=== PATIENT | male | born 1970 | race African-American/Black ===

== ENCOUNTER 2019-05-31 16:42 | Inpatient (IN) | payer OTHER ==
[2019-05-31 19:39] VITALS: BMI 35.5
--- NOTE | 2019-05-31 20:49 | HP ---
CIWA Score Nausea/Vomitin-No Nausea/No Vomiting Muscle Tremors: 1-None Visible, but [place] Anxiety: 1-Mildly Anxious Agitation: 1-Slight > Activity Paroxysmal Sweats: 3 Orientation: 2-Disoriented Date<2 days Tacttile Disturbances: 0-None Auditory Disturbances: 0-None Visual Disturbances: 0-None Headache: 3-Moderate CIWA-Ar Total Score: 11 - Admission Criteria OAS Guidelines: Admission for Medically Managed Detox: Requires at least one of the followin. CIWA greater than 12 2. Seizures within the past 24 hours 3. Delirium tremens within the past 24 hours 4. Hallucinations within the past 24 hours 5. Acute intervention needed for co occurring medical disorder 6. Acute intervention needed for co occurring psychiatric disorder 7. Severe withdrawal that cannot be handled at a lower level of care (continued vomiting, continued diarrhea, abnormal vital signs) requiring intravenous medication and/or fluids 8. Patient presents the following: Acute intervention needed for co-occurring med or psych disorder (elevated b/p denies hx/o htn) Admission Criteria Met: Admission criteria met Admission ROS [facility] Chief Complaint: seeking detox for alcohol dependence Allergies/Adverse Reactions: Allergies Allergy/AdvReac Type Severity Reaction Status Date / Time No Known Allergies Allergy Verified 05/31/19 19:30 History of Present Illness: here for alcohol detox. this is clients first admission here. but known to other detox. client reports daily alcohol intake "all day everyday". last drink a few hours ago. now presents with c/o worsening withdrawal sx's. 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 denies seizures, avh, si/hi. most recent clean time 1 year relapsing 1 month ago. lives alone, unemployed, denies legals Exam Limitations: No Limitations - Ebola screening Have you traveled outside of the country in the last 21 days: No (N) Have you had contact with anyone from an Ebola affected area: No Do you have a fever: No - Review of Systems Constitutional: Chills, Night Sweats, Changes in sleep EENT: reports: No Symptoms Reported Respiratory: reports: No Symptoms reported Cardiac: reports: No Symptoms Reported GI: reports: Nausea, Poor Appetite, Poor Fluid Intake, Vomiting : reports: No Symptoms Reported Musculoskeletal: reports: Back Pain (chronic) Integumentary: reports: Dryness, Rash (to trunk and arms- tinea corpis) Neuro: reports: Headache, Tremors Endocrine: reports: No Symptoms Reported Hematology: reports: No Symptoms Reported Other Systems: Reviewed and Negative Patient History - Patient Medical History Hx Anemia: No Hx Asthma: No Hx Chronic Obstructive Pulmonary Disease (COPD): No Hx Cancer: No Hx Cardiac Disorders: No Hx Congestive Heart Failure: No Hx Hypertension: No Hx Hypercholesterolemia: No Hx Pacemaker: No HX Cerebrovascular Accident: No Hx Seizures: No Hx Dementia: No Hx Diabetes: No Hx Gastrointestinal Disorders: No Hx Genitourinary Disorders: No Hx Sexually Transmitted Disorders: No Hx Renal Disease (ESRD): No Hx Thyroid Disease: No Hx Human Immunodeficiency Virus (HIV): No Hx Hepatitis C: No Hx Depression: No Hx Suicide Attempt: No Hx Bipolar Disorder: No Hx Schizophrenia: No Other Medical History: denies - Patient Surgical History Past Surgical History: No Anesthesia Reaction: No - PPD History Previous Implant?: Yes Documented Results: Negative w/o proof Implanted On Prior [facility] Admission?: No PPD to be Administered?: Yes - Smoking Cessation Smoking history: Current every day smoker Have you smoked in the past 12 months: Yes Aproximately how many cigarettes per day: 4 Cigars Per Day: 0 Hx Chewing Tobacco Use: No Initiated information on smoking cessation: Yes 'Breaking Loose' booklet given: 05/31/19 - Substance & Tx. History Hx Alcohol Use: Yes Hx Substance Use: Yes Substance Use Type: Alcohol, Cocaine, Marijuana Hx Substance Use Treatment: Yes - Substances abused Alcohol Substance route: Oral Frequency: Daily Amount used: 5 to 6 bottles of henessey Age of first use: 16 Date of last use: 05/31/19 Cocaine Substance route: Inhalation Frequency: 1-2 times per week Amount used: 200 dollars Age of first use: 23 Date of last use: 05/29/19 Marijuana/Hashish Substance route: Smoking Frequency: Daily Amount used: 100 dollars Age of first use: 16 Date of last use: 05/29/19 Admission Physical Exam [facility] - Vital Signs Vital Signs: Vital Signs - 24 hr 05/31/19 19:31 Temperature 99.8 F H Pulse Rate 99 H Respiratory 20 Rate Blood Pressure 157/110 H - Physical General Appearance: Yes: Mild Distress, Obese, Anxious HEENTM: Yes: EOMI, Normocephalic, Normal Voice, OSMAN, Pharynx Normal Respiratory: Yes: Chest Non-Tender, Lungs Clear, Normal Breath Sounds, No Respiratory Distress, No Accessory Muscle Use Neck: Yes: No masses,lesions,Nodules, Supple, Trachea in good position Breast: Yes: Breast Exam Deferred Cardiology: Yes: Regular Rhythm, Regular Rate, S1, S2 Abdominal: Yes: Normal Bowel Sounds, Non Tender, Soft, Protuberent Genitourinary: Yes: Within Normal Limits Back: Yes: Normal Inspection Musculoskeletal: Yes: full range of Motion, Gait Steady Extremities: Yes: Normal Capillary Refill, Normal Range of Motion, Non-Tender Neurological: Yes: Fully Oriented, Alert, Motor Strength 5/5, Depressed Affect Integumentary: Yes: Dry, Warm, Rash (pruritic fungal rash to chest, back and both shoulders), Other (generalized escoriation noted to back and chest area from client scratching self due to pruritic rash) Lymphatic: Yes: Within Normal Limits - Diagnostic (1) Alcohol dependence with withdrawal, uncomplicated Current Visit: Yes Status: Acute (2) Cannabis dependence, uncomplicated Current Visit: Yes Status: Acute (3) Cocaine dependence, uncomplicated Current Visit: Yes Status: Acute (4) Nicotine dependence Current Visit: Yes Status: Chronic Qualifiers: Nicotine product type: cigarettes Substance use status: uncomplicated Qualified Code(s): F17.210 - Nicotine dependence, cigarettes, uncomplicated (5) Tinea corporis Current Visit: Yes Status: Acute (6) Elevated blood pressure reading Current Visit: Yes Status: Acute (7) Obese Current Visit: Yes Status: Acute Qualifiers: Obesity type: unspecified obesity type Obesity classification: adult class 2 (BMI 35 - 39.9) Serious obesity comorbidity presence: unspecified whether serious comorbidity present Body mass index: BMI 35.0-35.9 Qualified Code(s) : E66.9 - Obesity, unspecified; Z68.35 - Body mass index (BMI) 35.0-35.9, adult Cleared for Admission S - Detox or Rehab [facility] Level of Care: Medically Managed Detox Regimen/Protocol: Valium Claeared for Rehab Admission: No Breathalyzer - Breathalyzer Breathalyzer: 0 Urine Drug Screen - Test Device Lot number: [id number] Expiration date: 02/02/21 - Control Is test valid?: Yes - Results Drug screen NEGATIVE: No Urine drug screen results: THC-Marijuana, MIGUE-Cocaine Inpatient Rehab Admission - Rehab Decision to Admit Inpatient rehab admission?: No
[2019-05-31] MEDS ORDERED: ACETAMINOPHEN 325 MG TABLET (FP) PO PRN ×2 (20:52)
[2019-05-31] MEDS ORDERED: DICYCLOMINE HCL 10 MG CAPSULE PO PRN (20:52)
[2019-05-31] MEDS ORDERED: diazePAM 5 MG TABLET PO PRN (20:52)
[2019-05-31] MEDS ORDERED: MAG HYDROX/AL HYDROX/SIMETH 30 ML UNIT-DOSE CUP PO PRN (20:52)
[2019-05-31] MEDS ORDERED: BISMUTH SUBSALICYLATE 524 MG/30 ML UD PO PRN (20:52)
[2019-05-31] MEDS ORDERED: IBUPROFEN 400 MG TABLET (FP) PO PRN (20:52)
[2019-05-31] MEDS ORDERED: MELATONIN 5 MG TABLETS PO PRN (20:52)
[2019-05-31] MEDS ORDERED: hydrOXYzine PAMOATE 25 MG CAPSULE (FP) PO PRN (20:52)
[2019-05-31] MEDS ORDERED: MENTHOL/PHENOL 1 EACH UD MM PRN (20:52)
[2019-05-31] MEDS ORDERED: MAGNESIUM HYDROX 2400MG/30ML ORAL SUSPENSION 30 ML CUP PO PRN (20:52)
[2019-05-31] MEDS ORDERED: MAGNESIUM CITRATE 300 ML BOTTLE PO PRN (20:52)
[2019-05-31] MEDS ORDERED: ONDANSETRON *ODT* 4 MG TABLET SL PRN (20:52)
[2019-05-31] MEDS ORDERED: METHOCARBAMOL 500 MG TABLET PO PRN (20:52)
[2019-05-31] MEDS: cloNIDine HCL 0.1 MG TABLET PO PRN (22:28)
[2019-05-31] MEDS: diazePAM 5 MG TABLET PO SCH (22:28)
[2019-05-31] MEDS: THIAMINE HCL 100 MG TABLET (FP) PO SCH (22:28)
[2019-06-01] MEDS: NYSTATIN 100,000 UNIT/GM TOPICAL CREAM 15 GM TUBE TP SCH ×3 (00:25→22:49)
[2019-06-01] MEDS: diazePAM 5 MG TABLET PO SCH ×3 (05:27→22:50)
[2019-06-01] MEDS: PRENATAL VITAMINS W/ FOLIC ACID TABLET (FP) PO SCH (09:36)
[2019-06-01] MEDS: cloNIDine HCL 0.1 MG TABLET PO PRN (09:40)
[2019-06-01 10:15] LABS: BILIRUBIN,TOTAL 0.5 mg/dL (0.2-1); CALCIUM 8.4 mg/dL (8.5-10.1); POTASSIUM 4.1 mmol/L (3.5-5.1); TOT PROT 6.3 g/dl (6.4-8.2)
[2019-06-01 10:31] LABS: HEMOGLOBIN 14.1 GM/dL (11.7-16.9); MCH 26.7 pg (25.7-33.7); MCHC 32.8 g/dl (32.0-35.9); MEAN CELL VOLUME 81.6 fl (80-96); MEAN PLT VOLUME 9.7 fl (7.5-11.1); PLATELET COUNT 177 K/MM3 (134-434); RBC 5.27 M/mm3 (4.00-5.60); RDW 15.5 % (11.9-15.9); WHITE BLOOD COUNT 6.1 K/mm3 (4.0-10.0)
--- NOTE | 2019-06-01 10:49 | EKG ---
Test Reason : Blood Pressure : / mmHG Vent. Rate : 095 BPM Atrial Rate : 095 BPM P-R Int : 134 ms QRS Dur : 090 ms QT Int : 360 ms P-R-T Axes : 026 046 024 degrees QTc Int : 452 ms NORMAL SINUS RHYTHM NORMAL ECG NO PREVIOUS ECGS AVAILABLE Confirmed by JESSICA ISSA, JOURDAN ([id number]) on 06/01/2019 10:49:14 AM Referred By: GIULIANO LEOS Confirmed By:JOURDAN LOPEZ MD
[2019-06-01] MEDS ORDERED: COLLOIDAL OATMEAL 1 BAR EACH TP PRN (10:51)
[2019-06-01] MEDS ORDERED: MINERAL OIL/PETROLAT/WATER TOPICAL CREAM 113 GM JAR TP PRN (10:52)
[2019-06-01] MEDS ORDERED: diphenhydrAMINE HCL 25 MG CAPSULE (FP) PO PRN (10:52)
--- NOTE | 2019-06-01 11:38 | PN ---
S CIWA - CIWA Score Nausea/Vomitin-No Nausea/No Vomiting Muscle Tremors: 3 Anxiety: 2 Agitation: 3 Paroxysmal Sweats: 2 Orientation: 0-Oriented Tacttile Disturbances: 0-None Auditory Disturbances: 0-None Visual Disturbances: 0-None Headache: 0-None Present CIWA-Ar Total Score: 10 BHS Progress Note (SOAP) Subjective: body aches itchy skin d/t fungal infection on skin its a chronic condition sweats agitation Objective: 06/01/19 11:34 Vital Signs Temperature 97.7 F 06/01/19 09:33 Pulse Rate 75 06/01/19 09:33 Respiratory Rate 18 06/01/19 09:33 Blood Pressure 145/102 H 06/01/19 09:33 O2 Sat by Pulse Oximetry (%) Laboratory Tests 06/01/19 06/01/19 07:00 07:00 WBC 6.1 RBC 5.27 Hgb 14.1 Hct 43.0 MCV 81.6 MCH 26.7 MCHC 32.8 RDW 15.5 Plt Count 177 MPV 9.7 Sodium 140 Potassium 4.1 Chloride 107 Carbon Dioxide 28 Anion Gap 5 L BUN 11.0 Creatinine 1.0 Est GFR (CKD-EPI)AfAm 103.42 Est GFR (CKD-EPI)NonAf 89.23 Random Glucose 98 Calcium 8.4 L Total Bilirubin 0.5 AST 16 ALT 21 Alkaline Phosphatase 76 Total Protein 6.3 L Albumin 3.0 L labs noted aaox3 ambulating no acute distress Assessment: 06/01/19 11:34 withdrawals noted fungal skin infection to back and chest and arms noted, scaly Plan: continue detox increase fluids nyastatin cream ordered aveeno soap benadryl prn eucerin
--- NOTE | 2019-06-01 11:45 | CONSULT ---
[facility] Psychiatric Consult - Data Date of interview: 06/01/19 Admission source: Friend Identifying data: Mr Freed is a 48 years old single Black, unemployed with no source of income, homeless seeking detox treatment for alcohol, cocaine and cannabis Substance Abuse History: Reports history of alcohol, coaine and marijuana use. Refer to addiction counselor's summary for further information Medical History: Significant for tinea corporis and obesity. Smokes 4 cigarettes daily Psychiatric History: Reports that his first psychiaric contact occured at age 19 when he was admitted to [facility] on account of a suicidal attempt by ingesting pills. Reports that he stayed there for 3-4 months, diagnosed with depression and treated with medications including Thorazine. Reports no follow up or further psychiatric contact since. At present, denies experiencing depressive symptoms, S/H ideations. However, reports sleeping poorly Physical/Sexual Abuse/Trauma History: Denies history of emotional, physical or sexual abuse as well as DV relationship Additional Comment: Reports history of multiple previous arrests including 2 felony convictions. Denies being on parole/probation. No [facility] Mental Status Exam - Mental Status Exam Alert and Oriented to: Time, Place, Person Cognitive Function: Fair Patient Appearance: Well Groomed Mood: Hopeful, Euthymic Patient Behavior: Cooperative Hallucinations: Denies Suicidal Ideation: Denies Homicidal Ideation: Denies Insight/Judgement: Poor Sleep: Poorly Appetite: Good Muscle strength/Tone: Normal Gait/Station: Normal Psychiatric Findings - Problem List ([place] 1, 2,3) (1) Depressive disorder Current Visit: Yes Status: Chronic (2) MDD (major depressive disorder), single episode Current Visit: Yes Status: Ruled-out (3) Substance-induced sleep disorder Current Visit: Yes Status: Acute (4) Alcohol dependence with withdrawal, uncomplicated Current Visit: Yes Status: Acute (5) Cocaine dependence, uncomplicated Current Visit: Yes Status: Acute (6) Cannabis dependence, uncomplicated Current Visit: Yes Status: Acute (7) Nicotine dependence Current Visit: Yes Status: Chronic Qualifiers: Nicotine product type: cigarettes Substance use status: uncomplicated Qualified Code(s): F17.210 - Nicotine dependence, cigarettes, uncomplicated (8) Elevated blood pressure reading Current Visit: Yes Status: Chronic (9) Tinea corporis Current Visit: Yes Status: Chronic - Initial Treatment Plan Initial Treatment Plan: 1) Start Belsomra 10 mg po HS prn for insomnia. 2) Continue inpatient detoxification
[2019-06-01] MEDS ORDERED: MELATONIN 5 MG TABLETS PO PRN (11:58)
[2019-06-01] MEDS ORDERED: cloNIDine HCL 0.1 MG TABLET PO ONE (21:43)
--- NOTE | 2019-06-01 21:44 | PN ---
S Progress Note Note: Vital Signs - 24 hr 05/31/19 06/01/19 06/01/19 22:15 00:30 03:30 Temperature 97.0 F L Pulse Rate 84 Respiratory 20 20 20 Rate Blood Pressure 165/105 H 06/01/19 06/01/19 06/01/19 07:01 09:33 13:43 Temperature 97.5 F L 97.7 F 97.7 F Pulse Rate 75 75 84 Respiratory 20 18 18 Rate Blood Pressure 138/64 145/102 H 146/98 06/01/19 06/01/19 17:21 20:27 Temperature 97.7 F 98.2 F Pulse Rate 81 74 Respiratory 18 18 Rate Blood Pressure 147/107 H 151/93 clonidine 0.1 mg once ordered .
[2019-06-01] MEDS: THIAMINE HCL 100 MG TABLET (FP) PO SCH (22:53)
[2019-06-02] MEDS: diazePAM 5 MG TABLET PO SCH ×2 (06:42→17:38)
--- NOTE | 2019-06-02 09:58 | PN ---
S CIWA - CIWA Score Nausea/Vomitin-No Nausea/No Vomiting Muscle Tremors: 2 Anxiety: 2 Agitation: 2 Paroxysmal Sweats: 3 Orientation: 0-Oriented Tacttile Disturbances: 0-None Auditory Disturbances: 0-None Visual Disturbances: 0-None Headache: 0-None Present CIWA-Ar Total Score: 9 BHS Progress Note (SOAP) Subjective: sweats agitation interrupted skin Objective: 06/02/19 09:57 Vital Signs Temperature 97.9 F 06/02/19 06:14 Pulse Rate 69 06/02/19 06:14 Respiratory Rate 18 06/02/19 06:14 Blood Pressure 151/93 06/02/19 06:14 O2 Sat by Pulse Oximetry (%) Laboratory Tests 06/01/19 06/01/19 06/01/19 07:00 07:00 07:00 WBC 6.1 RBC 5.27 Hgb 14.1 Hct 43.0 MCV 81.6 MCH 26.7 MCHC 32.8 RDW 15.5 Plt Count 177 MPV 9.7 Sodium 140 Potassium 4.1 Chloride 107 Carbon Dioxide 28 Anion Gap 5 L BUN 11.0 Creatinine 1.0 Est GFR (CKD-EPI)AfAm 103.42 Est GFR (CKD-EPI)NonAf 89.23 Random Glucose 98 Calcium 8.4 L Total Bilirubin 0.5 AST 16 ALT 21 Alkaline Phosphatase 76 Total Protein 6.3 L Albumin 3.0 L RPR Titer Nonreactive aaox3 ambulating no acute distress Assessment: 06/02/19 09:57 withdrawal sx Plan: continue detox increase fluids
[2019-06-02] MEDS: NYSTATIN 100,000 UNIT/GM TOPICAL CREAM 15 GM TUBE TP SCH ×3 (11:09→22:31)
[2019-06-02] MEDS: PRENATAL VITAMINS W/ FOLIC ACID TABLET (FP) PO SCH (11:09)
[2019-06-02] MEDS: cloNIDine HCL 0.1 MG TABLET PO PRN (11:10)
[2019-06-02] MEDS: LISINOPRIL 20 MG TABLET (FP) PO SCH (13:43)
--- NOTE | 2019-06-02 13:57 | PN ---
[facility] Progress Note Note: pt is scheduled for discharge tomorrow morning however pt has been +PPD since age 19 therefore pt is required to get a chest x-ray and will be sent to [place] ED report given to Dr. Kc to have pt get a chest x-ray and can return back to [facility] to complete his detox. Pt is made aware and agrees.
[2019-06-02] MEDS ORDERED: cloNIDine HCL 0.1 MG TABLET PO ONE (17:44)
--- NOTE | 2019-06-02 17:44 | PN ---
[facility] Progress Note Note: Vital Signs - 24 hr 06/01/19 06/02/19 06/02/19 20:27 03:30 06:14 Temperature 98.2 F 97.9 F Pulse Rate 74 69 Respiratory 18 18 18 Rate Blood Pressure 151/93 151/93 06/02/19 06/02/19 06/02/19 10:40 14:10 17:17 Temperature 97.7 F 97.1 F L 97.7 F Pulse Rate 92 H 84 72 Respiratory 16 20 18 Rate Blood Pressure 154/98 145/111 H 144/111 H clonidine 0.1 mg x once
[2019-06-02] MEDS: THIAMINE HCL 100 MG TABLET (FP) PO SCH (22:27)
[2019-06-03] MEDS ORDERED: diazePAM 5 MG TABLET PO ONE (06:00)
[2019-06-03] MEDS: PRENATAL VITAMINS W/ FOLIC ACID TABLET (FP) PO SCH (09:27)
[2019-06-03] MEDS: LISINOPRIL 20 MG TABLET (FP) PO SCH (09:27)
[2019-06-03] MEDS: NYSTATIN 100,000 UNIT/GM TOPICAL CREAM 15 GM TUBE TP SCH (09:27)
--- NOTE | 2019-06-03 09:27 | DS ---
[facility] Detox Discharge Summary Admission Date: 05/31/19 Discharge Date: 06/03/19 - History Present History: Alcohol Dependence, Cannabis Dependence, Cocaine Dependence - Physical Exam Results Vital Signs: Vital Signs Temperature 97.9 F 06/03/19 06:00 Pulse Rate 66 06/03/19 06:00 Respiratory Rate 18 06/03/19 06:00 Blood Pressure 120/75 06/03/19 06:00 O2 Sat by Pulse Oximetry (%) Pertinent Admission Physical Exam Findings: pt arrived in withdrawal Vital Signs Temperature 97.9 F 06/03/19 06:00 Pulse Rate 66 06/03/19 06:00 Respiratory Rate 18 06/03/19 06:00 Blood Pressure 120/75 06/03/19 06:00 O2 Sat by Pulse Oximetry (%) Laboratory Tests 06/01/19 06/01/19 06/01/19 07:00 07:00 07:00 WBC 6.1 RBC 5.27 Hgb 14.1 Hct 43.0 MCV 81.6 MCH 26.7 MCHC 32.8 RDW 15.5 Plt Count 177 MPV 9.7 Sodium 140 Potassium 4.1 Chloride 107 Carbon Dioxide 28 Anion Gap 5 L BUN 11.0 Creatinine 1.0 Est GFR (CKD-EPI)AfAm 103.42 Est GFR (CKD-EPI)NonAf 89.23 Random Glucose 98 Calcium 8.4 L Total Bilirubin 0.5 AST 16 ALT 21 Alkaline Phosphatase 76 Total Protein 6.3 L Albumin 3.0 L RPR Titer Nonreactive today pt is aaox3 ambulating no acute distress no s/s of withdrawal - Treatment Hospital Course: Detox Protocol Followed, Detoxed Safely, Responded well, Discharged Condition Good, Rehab Referral Accepted Patient has Accepted a Rehab Referral to: pt referred to [facility] inpatient rehab - Medication Discharge Medications: Ambulatory Orders Lisinopril [Prinivil] 20 mg PO DAILY 06/02/19 - Diagnosis (1) Alcohol dependence with withdrawal, uncomplicated Current Visit: Yes Status: Chronic (2) Cannabis dependence, uncomplicated Current Visit: Yes Status: Chronic (3) Cocaine dependence, uncomplicated Current Visit: Yes Status: Chronic (4) Obese Current Visit: Yes Status: Acute Qualifiers: Obesity type: unspecified obesity type Obesity classification: adult class 2 (BMI 35 - 39.9) Serious obesity comorbidity presence: unspecified whether serious comorbidity present Body mass index: BMI 35.0-35.9 Qualified Code(s) : E66.9 - Obesity, unspecified; Z68.35 - Body mass index (BMI) 35.0-35.9, adult (5) Substance-induced sleep disorder Current Visit: Yes Status: Acute (6) Depressive disorder Current Visit: Yes Status: Chronic (7) Elevated blood pressure reading Current Visit: Yes Status: Chronic (8) Nicotine dependence Current Visit: Yes Status: Chronic Qualifiers: Nicotine product type: cigarettes Substance use status: uncomplicated Qualified Code(s): F17.210 - Nicotine dependence, cigarettes, uncomplicated (9) Tinea corporis Current Visit: Yes Status: Chronic (10) MDD (major depressive disorder), single episode Current Visit: Yes Status: Ruled-out (11) PPD positive, treated Current Visit: No Status: Acute - AMA Did Patient Leave Against Medical Advice: No
[2019-06-03 09:55] VITALS: BP 121/84; PULSE 72; TEMP 97.7
[2019-06-03 14:26] LABS: PH,URINE 5.5 (5.0-8.0); URINE APPEARANCE CLEAR; URINE BILIRUBIN 1+ (NEGATIVE); URINE COLOR DK YELLOW; URINE GLUCOSE (UA) NEGATIVE (NEGATIVE); URINE KETONE TRACE (NEGATIVE); URINE LEUK ESTERASE NEGATIVE (NEGATIVE); URINE NITRITE NEGATIVE (NEGATIVE); URINE PROTEIN NEGATIVE (NEGATIVE); URINE UROBILINOGEN 0.2 mg/dL (0.2-1.0)
== END 2019-06-03 12:35 | disposition other institution (70) | DRG 774 ==
LOC: YASAS 16:42 → Y6N 21:25
PROVIDERS: ADMIT Allergy & Immunology; ATTEND Allergy & Immunology
PROC: HZ2ZZZZ Detoxification Services for Substance Abuse Treatment (ICD-10-PCS; principal; 2019-05-31)
DX: F10.230 Alcohol dependence with withdrawal, uncomplicated (principal); F14.20 Cocaine dependence, uncomplicated; F12.20 Cannabis dependence, uncomplicated; F17.210 Nicotine dependence, cigarettes, uncomplicated; F19.282 Other psychoactive substance dependence with psychoactive substance-induced sleep disorder; F32.9 Major depressive disorder, single episode, unspecified; B35.4 Tinea corporis; R03.0 Elevated blood-pressure reading, without diagnosis of hypertension; R76.11 Nonspecific reaction to tuberculin skin test without active tuberculosis; E66.9 Obesity, unspecified; Z68.35 Body mass index [BMI] 35.0-35.9, adult
CPT/HCPCS: 36415; 80053; 81003; 85027; 86593; 93005; 93010; J0735

== ENCOUNTER 2019-06-02 14:46 | Emergency (ER) | payer OTHER ==
[2019-06-02 14:59] VITALS: BP 174/111; PULSE 72; TEMP 97.7; BMI 34.2
--- NOTE | 2019-06-02 15:03 | PDOC ---
History of Present Illness - General Chief Complaint: Respiratory Stated Complaint: RULE OUT TB Time Seen by Provider: 06/02/19 15:03 Past History - Past Medical History Allergies/Adverse Reactions: Allergies Allergy/AdvReac Type Severity Reaction Status Date / Time No Known Allergies Allergy Verified 05/31/19 19:30 Anemia: No Asthma: No Cancer: No Cardiac Disorders: No CVA: No COPD: No CHF: No Dementia: No Diabetes: No GI Disorders: No Disorders: No HTN: No Hypercholesterolemia: No Kidney Stones: No Seizures: No Thyroid Disease: No - Surgical History Abdominal Surgery: No Appendectomy: No Cardiac Surgery: No Cholecystectomy: No Lung Surgery: No Neurologic Surgery: No Orthopedic Surgery: No - Reproductive History Testicular Surgery: No - Immunization History Immunization Up to Date: No - Psycho Social/Smoking Cessation Hx Smoking History: Current every day smoker Have you smoked in the past 12 months: Yes Number of Cigarettes Smoked Daily: 20 Cigars Per Day: 0 Information on smoking cessation initiated: No 'Breaking Loose' booklet given: 05/31/19 Hx Alcohol Use: Yes Drug/Substance Use Hx: Yes Substance Use Type: Alcohol, Cocaine, Marijuana Hx Substance Use Treatment: Yes *Physical Exam - Vital Signs Last Vital Signs Temp Pulse Resp BP Pulse Ox 97.7 F 72 20 174/111 H 97 06/02/19 14:50 06/02/19 14:50 06/02/19 14:50 06/02/19 14:50 06/02/19 14:50
--- NOTE | 2019-06-02 15:15 | PDOC ---
Documentation entered by Nikki Flores SCRIBE, acting as scribe for Alfreda Rodrigues MD. Alfreda Rodrigues MD: This documentation has been prepared by the Sandra johnson Brenda, SCRIBE, under my direction and personally reviewed by me in its entirety. I confirm that the documentation accurately reflects all work, treatment, procedures, and medical decision making performed by me. History of Present Illness - General Chief Complaint: Respiratory Stated Complaint: RULE OUT TB Time Seen by Provider: 06/02/19 15:03 History Source: Patient Exam Limitations: No Limitations - History of Present Illness Initial Comments: 06/02/19 15:14 The patient is a 48 year old male, with a significant PMH of tuberculosis who presents to the emergency department from [facility] for a positive PPD test for further evaluation. As per patient, he was diagnosed with tuberculosis at the age of 18, and was treated with INH for 1 year. He endorses positive PPD tests before. The patient denies hemoptysis, or weight loss. Denies chest pain, shortness of breath, headache and dizziness. Denies fever, chills, and any GI symptoms. Denies any urinary symptoms. Allergies: NKA Past surgical history: none reported Social history: Daily tobacco use. Use of Alcohol, Cocaine, Marijuana Past History - Past Medical History Allergies/Adverse Reactions: Allergies Allergy/AdvReac Type Severity Reaction Status Date / Time No Known Allergies Allergy Verified 05/31/19 19:30 Home Medications: Ambulatory Orders Acetaminophen [Tylenol] 650 mg PO PRN 06/02/19 Bismuth Subsalicylate [Pepto-Bismol -] 524 mg PO PRN 06/02/19 Clonidine HCl [Catapres] 0.1 mg PO PRN 06/02/19 Diazepam 10 mg PO PRN 06/02/19 Diazepam [Valium] 5 mg PO BID 06/02/19 Dicyclomine HCl [Bentyl -] 10 mg PO PRN 06/02/19 Diphenhydramine HCl [Benadryl -] 25 mg PO PRN 06/02/19 Ibuprofen [Motrin -] 400 mg PO PRN 06/02/19 Lisinopril [Prinivil] 20 mg PO DAILY 06/02/19 Mag Hydrox/Al Hydrox/Simeth [Mylanta Oral Suspension -] 30 ml PO PRN 06/02/19 Magnesium Citrate [Citroma -] 150 ml PO PRN 06/02/19 Magnesium Hydroxide [Milk of Magnesia] 400 mg PO PRN 06/02/19 Melatonin 10 mg PO PRN 06/02/19 Menthol/Phenol [Cepastat Lozenge -] 1 each MM PRN 06/02/19 Methocarbamol [Robaxin -] 500 mg PO PRN 06/02/19 Nystatin Cream [Mycostatin] 1 applic TP BID 06/02/19 Ondansetron [Zofran *Odt*] 4 mg SL PRN 06/02/19 Vit 14/Iron Fum/Folic [Completenate Tablet Chew] 1 each PO DAILY Thiamine HCl [B-1] 100 mg PO HS 06/02/19 hydrOXYzine PAMOATE [Vistaril -] 25 mg PO PRN 06/02/19 Anemia: No Asthma: No Cancer: No Cardiac Disorders: No CVA: No COPD: No CHF: No Dementia: No Diabetes: No GI Disorders: No Disorders: No HTN: No Hypercholesterolemia: No Kidney Stones: No Seizures: No Thyroid Disease: No - Surgical History Abdominal Surgery: No Appendectomy: No Cardiac Surgery: No Cholecystectomy: No Lung Surgery: No Neurologic Surgery: No Orthopedic Surgery: No - Reproductive History Testicular Surgery: No - Immunization History Immunization Up to Date: No - Psycho Social/Smoking Cessation Hx Smoking History: Current every day smoker Have you smoked in the past 12 months: Yes Number of Cigarettes Smoked Daily: 20 Cigars Per Day: 0 Information on smoking cessation initiated: No 'Breaking Loose' booklet given: 05/31/19 Hx Alcohol Use: Yes Drug/Substance Use Hx: Yes Substance Use Type: Alcohol, Cocaine, Marijuana Hx Substance Use Treatment: Yes Review of Systems - Review of Systems Able to Perform ROS?: Yes Comments:: 06/02/19 15:14 GENERAL/CONSTITUTIONAL: No fever or chills. No weakness. HEAD, EYES, EARS, NOSE AND THROAT: No change in vision. No ear pain or discharge. No sore throat. CARDIOVASCULAR: No chest pain or shortness of breath. RESPIRATORY: No cough, wheezing, or hemoptysis. GASTROINTESTINAL: No nausea, vomiting, diarrhea or constipation. GENITOURINARY: No dysuria, frequency, or change in urination. MUSCULOSKELETAL: No joint or muscle swelling or pain. No neck or back pain. SKIN: No rash NEUROLOGIC: No headache, vertigo, loss of consciousness, or change in strength/ sensation. ENDOCRINE: No increased thirst. No abnormal weight change. HEMATOLOGIC/LYMPHATIC: No anemia, easy bleeding, or history of blood clots. ALLERGIC/IMMUNOLOGIC: No hives or skin allergy. *Physical Exam - Vital Signs Last Vital Signs Temp Pulse Resp BP Pulse Ox 97.7 F 72 20 174/111 H 97 06/02/19 14:50 06/02/19 14:50 06/02/19 14:50 06/02/19 14:50 06/02/19 14:50 - Physical Exam Comments: 06/02/19 15:14 GENERAL: Awake, alert, and fully oriented, in no acute distress HEAD: No signs of trauma EYES: PERRLA, EOMI, sclera anicteric, conjunctiva clear ENT: Auricles normal inspection, hearing grossly normal. Moist mucosa NECK: Normal ROM, supple. LUNGS: Breath sounds equal, clear to auscultation bilaterally. No wheezes, and no crackles HEART: Regular rate and rhythm, normal S1 and S2, no murmurs, rubs or gallops EXTREMITIES: Normal range of motion, no edema. No clubbing or cyanosis. No cords, erythema, or tenderness NEUROLOGICAL: Cranial nerves II through XII grossly intact. Normal speech. SKIN: Warm, Dry, normal turgor, no rashes or lesions noted. Medical Decision Making - Medical Decision Making 06/02/19 15:15 48 yo male currently in [facility], en route to rehab for detox, p states has had TB as a child was treated with INH for 1 yr. has permamnt ppd. therefore needed a cxr prior to going to he rehab program because his ppd is always positive. denies hemoptysis, no night sweats. n osob. no current complaints. cxr ordered. kashif allan dc back to [facility]. 06/02/19 15:55 cxr is clear dc to [facility]. Discharge - Discharge Information Problems reviewed: Yes Clinical Impression/Diagnosis: PPD positive, treated Condition: Improved Disposition: HOME - Admission No - Follow up/Referral - Patient Discharge Instructions Patient Printed Discharge Instructions: Substance Use Disorder Additional Instructions: you should go back to [facility]. where they will send you to rehab . return for any problems or concerns. follow up with your primary doctor. your chest xray is negative for any pathology. - Post Discharge Activity
== END 2019-06-02 16:50 | disposition home or self-care (01) ==
LOC: JER 14:46
DX: A15.9 Respiratory tuberculosis unspecified (principal); F17.210 Nicotine dependence, cigarettes, uncomplicated
CPT/HCPCS: 71046-TC-FY; 99281-25

== ENCOUNTER 2019-06-03 12:50 | Inpatient (IN) | payer OTHER ==
--- NOTE | 2019-06-03 11:15 | HP ---
[facility] Rehab Assess/Revision - Admission History Admitted to Rehab from[facility] - Findings Detox History & Physical reviewed: Yes Concur with findings: Yes Inpatient Rehab Admission - Rehab Decision to Admit Inpatient rehab admission?: Yes - Initial Determination Are CD services needed?: Yes Free of communicable disease: Yes Not in need of hospitalization: Yes - Rehab Admission Criteria Previous failed treatment: Yes Poor recovery environment: Yes Comorbidities: Yes Lacks judgement: Yes Patient is meeting Inpatient Rehab admission criteria:: Yes
[~2019-06-03 12:50] MED LIST: ACETAMINOPHEN 325 MG TABLET (FP) PO PRN; IBUPROFEN 400 MG TABLET (FP) PO PRN; LOPERAMIDE HCL 2 MG CAPSULE PO PRN; MAG HYDROX/AL HYDROX/SIMETH 30 ML UNIT-DOSE CUP PO PRN; MAGNESIUM CITRATE 300 ML BOTTLE PO PRN; MAGNESIUM HYDROX 2400MG/30ML ORAL SUSPENSION 30 ML CUP PO PRN; MENTHOL/PHENOL 1 EACH UD MM PRN; NICOTINE POLACRILEX 4 MG GUM BUC PRN; P-EPHED 60MG/TRIPROLIDI 2.5MG TABLET PO PRN; guaiFENesin 200 MG/10 ML 10 ML UNIT-DOSE CUPS PO PRN; hydrOXYzine PAMOATE 50 MG CAPSULE (FP) PO PRN
[2019-06-03 14:03] VITALS: BP 146/81; PULSE 96; TEMP 97.6
--- NOTE | 2019-06-03 17:06 | DS ---
[facility] Rehab Discharge Summary - [facility] Rehab Discharge Summary Admission Date: 06/03/19 Discharge Date: 06/03/19 - History Present History: Alcohol dependence, Cannabis dependence, Cocaine dependence Additional Comments: Patient was a transfer after receiving alcohol detox. Pertinent Past History: Patient w/ a hx of alcohol, marijuana and cocaine use disorder. - Discharge Physical Exam Vital Signs: Vital Signs Temperature 97.6 F 06/03/19 14:01 Pulse Rate 96 H 06/03/19 14:01 Respiratory Rate 20 06/03/19 14:01 Blood Pressure 146/81 06/03/19 14:01 O2 Sat by Pulse Oximetry (%) Pertinent Admission Physical Exam Findings: Patient arrived to unit from detox and decided to leave after a couple of hours , without - Treatment Discharge Condition: Discharge condition good (PATIENT CAME TO UNIT AND LEFT SAME DAY.) Hospital Course: Patient left after 4 hours on rehab and refused to wait to speak w/ medical provider. - Medication Discharge Medications: Ambulatory Orders Lisinopril [Prinivil] 20 mg PO DAILY 06/02/19 - Medication-Assisted Treatment (MAT) Medication-Assisted Treatment (MAT): No - Discharge Instructions Diet, activity, other medical instructions: Diet: Activity: Other medical instructions: - Follow-up Referral Minutes to complete discharge: 10 - AMA Did Patient Leave Against Medical Advice: Yes
[2019-06-03] MEDS ORDERED: THIAMINE HCL 100 MG TABLET (FP) PO SCH (22:00)
[2019-06-03] MEDS ORDERED: MELATONIN 5 MG TABLETS PO PRN (22:00)
[2019-06-04] MEDS ORDERED: LISINOPRIL 20 MG TABLET (FP) PO SCH (10:00)
[2019-06-04] MEDS ORDERED: PRENATAL VITAMINS W/ FOLIC ACID TABLET (FP) PO SCH (10:00)
[2019-06-04] MEDS ORDERED: NICOTINE 21 MG/24 HOURS TOPICAL PATCH TD SCH (10:00)
== END 2019-06-03 16:50 | disposition left against medical advice (07) | DRG 770 ==
LOC: YASAS 12:50 → Y5N 12:51
PROVIDERS: ADMIT Neuromusculoskeletal Medicine & OMM; ATTEND Neuromusculoskeletal Medicine & OMM
PROC: HZ42ZZZ Group Counseling for Substance Abuse Treatment, Cognitive-Behavioral (ICD-10-PCS; principal; 2019-06-03)
DX: F10.20 Alcohol dependence, uncomplicated (principal); F14.20 Cocaine dependence, uncomplicated; F12.20 Cannabis dependence, uncomplicated

== ENCOUNTER 2022-01-13 12:37 | Inpatient (IN) | payer OTHER ==
[2022-01-13 14:53] VITALS: BMI 36.6
[2022-01-13] MEDS ORDERED: MAGNESIUM CITRATE 300 ML BOTTLE PO PRN (15:26)
[2022-01-13] MEDS ORDERED: DICYCLOMINE HCL 10 MG CAPSULE PO PRN (15:26)
[2022-01-13] MEDS ORDERED: LOPERAMIDE HCL 2 MG CAPSULE PO PRN (15:26)
[2022-01-13] MEDS ORDERED: ACETAMINOPHEN 325 MG TABLET (FP) PO PRN ×2 (15:26)
[2022-01-13] MEDS ORDERED: BISMUTH SUBSALICYLATE 524 MG/30 ML PO PRN (15:26)
[2022-01-13] MEDS ORDERED: IBUPROFEN 600 MG TABLET (FP) PO PRN (15:26)
[2022-01-13] MEDS ORDERED: MAG HYDROX/AL HYDROX/SIMETH 30 ML UNIT-DOSE CUP PO PRN (15:26)
[2022-01-13] MEDS ORDERED: IBUPROFEN 400 MG TABLET (FP) PO PRN (15:26)
[2022-01-13] MEDS ORDERED: BENZOCAINE/MENTHOL (CHLORASEPTIC ) LOZENGE MM PRN (15:26)
[2022-01-13] MEDS ORDERED: MAGNESIUM HYDROX 2400MG/30ML ORAL SUSPENSION 30 ML CUP PO PRN (15:26)
[2022-01-13] MEDS ORDERED: NICOTINE 10 MG CARTRIDGE (INHALER) IH PRN (15:26)
[2022-01-13] MEDS ORDERED: ONDANSETRON *ODT* 4 MG TABLET SL PRN (15:26)
[2022-01-13] MEDS ORDERED: NALOXONE HCL (KLOXXADO) 8 MG SPRAY NS PRN (15:33)
[2022-01-13] MEDS ORDERED: COLLOIDAL OATMEAL 1 BAR EACH TP PRN (15:41)
[2022-01-13] MEDS ORDERED: INDOMETHACIN 50 MG CAPSULE PO SCH (15:45)
[2022-01-13] MEDS ORDERED: INDOMETHACIN 25 MG CAPSULE PO SCH (15:45)
[2022-01-13] MEDS: hydrOXYzine PAMOATE 25 MG CAPSULE (FP) PO SCH ×2 (18:59→23:08)
[2022-01-13] MEDS: INDOMETHACIN PO SCH (19:00)
[2022-01-13] MEDS ORDERED: MELATONIN 5 MG TABLETS PO SCH (22:00)
[2022-01-13] MEDS: LISINOPRIL 20 MG TABLET PO SCH (23:08)
[2022-01-13] MEDS: THIAMINE HCL 100 MG TABLET (FP) PO SCH (23:08)
[2022-01-14] MEDS: MINERAL OIL/PETROLAT/WATER TOPICAL CREAM 113 GM JAR TP SCH (07:04)
[2022-01-14] MEDS: hydrOXYzine PAMOATE 25 MG CAPSULE (FP) PO SCH ×5 (07:05→22:46)
[2022-01-14] MEDS: PRENATAL VITAMINS W/ FOLIC ACID TABLET (FP) PO SCH (10:36)
[2022-01-14] MEDS: INDOMETHACIN PO SCH (10:37)
[2022-01-14] MEDS: LISINOPRIL 20 MG TABLET PO SCH (10:39)
[2022-01-14 11:33] LABS: HEMATOCRIT 40.9 % (35.4-49); HEMOGLOBIN 13.4 GM/dL (11.7-16.9); MCH 26.3 pg (25.7-33.7); MCHC 32.7 g/dl (32.0-35.9); MEAN CELL VOLUME 80.5 fl (80-96); MEAN PLT VOLUME 8.9 fl (7.5-11.1); PLATELET COUNT 196 10^3/uL (134-434); RBC 5.08 M/mm3 (4.00-5.60); RDW 15.8 % (11.9-15.9); WHITE BLOOD COUNT 5.8 K/mm3 (4.0-10.0)
[2022-01-14 12:44] LABS: ALBUMIN 3.2 g/dl (3.4-5.0); BLOOD UREA NITROGEN 11.9 mg/dL (7-18); CALCIUM 8.5 mg/dL (8.5-10.1)
[2022-01-14 12:48] LABS: CREATININE 0.8 mg/dL (0.55-1.3)
[2022-01-14 12:49] LABS: BILIRUBIN,TOTAL 0.5 mg/dL (0.2-1); TOT PROT 6.4 g/dl (6.4-8.2)
[2022-01-14] MEDS: METHOCARBAMOL 500 MG TABLET PO PRN (18:29)
[2022-01-14] MEDS ORDERED: NAPROXEN 500 MG TABLET PO ONE (20:45)
[2022-01-14] MEDS ORDERED: SUVOREXANT 10 MG TABLET PO PRN (22:00)
[2022-01-14] MEDS: THIAMINE HCL 100 MG TABLET (FP) PO SCH (22:46)
[2022-01-15] MEDS: METHOCARBAMOL 500 MG TABLET PO PRN ×2 (03:34→10:33)
[2022-01-15] MEDS: MINERAL OIL/PETROLAT/WATER TOPICAL CREAM 113 GM JAR TP SCH (07:45)
[2022-01-15] MEDS: hydrOXYzine PAMOATE 25 MG CAPSULE (FP) PO SCH ×3 (07:46→15:10)
[2022-01-15] MEDS: LISINOPRIL 20 MG TABLET PO SCH (10:33)
[2022-01-15] MEDS: PRENATAL VITAMINS W/ FOLIC ACID TABLET (FP) PO SCH (10:33)
[2022-01-15] MEDS: INDOMETHACIN PO SCH (10:34)
[2022-01-15 17:47] VITALS: BP 157/99; PULSE 79; TEMP 97.8
== END 2022-01-15 18:41 | disposition other institution (70) | DRG 774 ==
LOC: YASAS 12:37 → Y3N 15:33
PROVIDERS: ADMIT Allergy & Immunology; ATTEND Surgery
PROC: HZ2ZZZZ Detoxification Services for Substance Abuse Treatment (ICD-10-PCS; principal; 2022-01-15)
DX: F10.230 Alcohol dependence with withdrawal, uncomplicated (principal); F14.20 Cocaine dependence, uncomplicated; F12.20 Cannabis dependence, uncomplicated; F17.210 Nicotine dependence, cigarettes, uncomplicated; F19.282 Other psychoactive substance dependence with psychoactive substance-induced sleep disorder; F41.1 Generalized anxiety disorder; F43.10 Post-traumatic stress disorder, unspecified; F32.A Depression, unspecified; I10 Essential (primary) hypertension; M1A.09X0 Idiopathic chronic gout, multiple sites, without tophus (tophi); R60.0 Localized edema; E66.9 Obesity, unspecified; Z68.36 Body mass index [BMI] 36.0-36.9, adult; Z86.11 Personal history of tuberculosis
CPT/HCPCS: 36415; 71046-TC-FY; 80053; 84550; 85027; 86780; 93005; 93010; C9803-CS; U0003; U0005

== ENCOUNTER 2022-01-15 19:18 | Inpatient (IN) | payer OTHER ==
[2022-01-15] MEDS ORDERED: LOPERAMIDE HCL 2 MG CAPSULE PO PRN (19:26)
[2022-01-15] MEDS ORDERED: guaiFENesin 200 MG/10 ML 10 ML UNIT-DOSE CUPS PO PRN (19:26)
[2022-01-15] MEDS ORDERED: MAGNESIUM HYDROX 2400MG/30ML ORAL SUSPENSION 30 ML CUP PO PRN (19:26)
[2022-01-15] MEDS ORDERED: NICOTINE 10 MG CARTRIDGE (INHALER) IH PRN (19:26)
[2022-01-15] MEDS ORDERED: IBUPROFEN 400 MG TABLET (FP) PO PRN (19:26)
[2022-01-15] MEDS ORDERED: ACETAMINOPHEN 325 MG TABLET (FP) PO PRN (19:26)
[2022-01-15] MEDS ORDERED: MAG HYDROX/AL HYDROX/SIMETH 30 ML UNIT-DOSE CUP PO PRN (19:26)
[2022-01-15] MEDS ORDERED: MAGNESIUM CITRATE 300 ML BOTTLE PO PRN (19:26)
[2022-01-15] MEDS ORDERED: P-EPHED 60MG/TRIPROLIDI 2.5MG TABLET PO PRN (19:26)
[2022-01-15 21:48] VITALS: TEMP 98.6
[2022-01-15] MEDS ORDERED: cloNIDine HCL 0.1 MG TABLET PO ONE (21:50)
[2022-01-15] MEDS: MELATONIN 5 MG TABLETS PO SCH (22:26)
[2022-01-15] MEDS: THIAMINE HCL 100 MG TABLET (FP) PO SCH (22:26)
[2022-01-15] MEDS: INDOMETHACIN 25 MG CAPSULE PO SCH (22:26)
[2022-01-15] MEDS: hydrOXYzine PAMOATE 25 MG CAPSULE (FP) PO SCH (22:26)
[2022-01-16] MEDS: INDOMETHACIN 25 MG CAPSULE PO SCH ×3 (06:37→21:42)
[2022-01-16] MEDS: hydrOXYzine PAMOATE 25 MG CAPSULE (FP) PO SCH ×5 (06:37→21:42)
[2022-01-16] MEDS ORDERED: cloNIDine HCL 0.1 MG TABLET PO ONE (06:47)
[2022-01-16] MEDS ORDERED: LISINOPRIL 20 MG TABLET PO SCH (10:00)
[2022-01-16] MEDS: PRENATAL VITAMINS W/ FOLIC ACID TABLET (FP) PO SCH (10:08)
[2022-01-16] MEDS: LISINOPRIL 20 MG TABLET PO SCH (10:08)
[2022-01-16] MEDS: ALLOPURINOL 100 MG TABLET (FP) PO SCH (14:26)
[2022-01-16] MEDS: THIAMINE HCL 100 MG TABLET (FP) PO SCH (21:42)
[2022-01-16] MEDS: MELATONIN 5 MG TABLETS PO SCH (21:42)
[2022-01-16] MEDS ORDERED: LISINOPRIL 5 MG TABLET PO SCH (22:00)
[2022-01-17] MEDS: INDOMETHACIN 25 MG CAPSULE PO SCH (07:38)
[2022-01-17] MEDS: hydrOXYzine PAMOATE 25 MG CAPSULE (FP) PO SCH ×2 (07:38→11:10)
[2022-01-17] MEDS ORDERED: LISINOPRIL 20 MG TABLET PO ONE (07:45)
[2022-01-17] MEDS ORDERED: cloNIDine HCL 0.1 MG TABLET PO ONE (07:45)
[2022-01-17] MEDS ORDERED: INDOMETHACIN PO SCH (09:33)
[2022-01-17] MEDS ORDERED: INDOMETHACIN 25 MG CAPSULE PO SCH ×2 (09:33→22:00)
[2022-01-17] MEDS ORDERED: HYDROCHLOROTHIAZIDE 25 MG TABLET (FP) PO SCH (10:00)
[2022-01-17] MEDS: ALLOPURINOL 100 MG TABLET (FP) PO SCH (11:09)
[2022-01-17] MEDS: PRENATAL VITAMINS W/ FOLIC ACID TABLET (FP) PO SCH (11:09)
[2022-01-17] MEDS: LISINOPRIL 20 MG TABLET PO SCH (11:09)
[2022-01-17 12:10] VITALS: BP 146/102; PULSE 89
== END 2022-01-17 13:45 | disposition home or self-care (01) | DRG 772 ==
LOC: YASAS 19:18 → Y3E 19:20
PROVIDERS: ADMIT Allergy & Immunology; ATTEND Psychiatry & Neurology Pain Medicine
PROC: HZ42ZZZ Group Counseling for Substance Abuse Treatment, Cognitive-Behavioral (ICD-10-PCS; principal; 2022-01-15)
DX: F10.20 Alcohol dependence, uncomplicated (principal); F14.20 Cocaine dependence, uncomplicated; F12.20 Cannabis dependence, uncomplicated; F17.210 Nicotine dependence, cigarettes, uncomplicated; F19.282 Other psychoactive substance dependence with psychoactive substance-induced sleep disorder; F41.1 Generalized anxiety disorder; F32.A Depression, unspecified; F43.10 Post-traumatic stress disorder, unspecified; I10 Essential (primary) hypertension; M10.9 Gout, unspecified; E66.9 Obesity, unspecified; Z68.36 Body mass index [BMI] 36.0-36.9, adult; Z91.14 Patient's other noncompliance with medication regimen
CPT/HCPCS: J0735